=== PATIENT | female | born 1950 | race Caucasian/White ===

== ENCOUNTER → 2020-06-06 14:29 | Outpatient (CLI) | payer MEDICARE, SELFPAY ==
--- NOTE | ~2020-06-06 | MM_ITS ---
EXAMINATION: MM screening [facility] BI w juan HISTORY: Screening TECHNIQUE: Craniocaudal and mediolateral oblique 3-D tomosynthesis images were obtained and synthetic 2-D images were generated. CAD analysis was submitted and interpreted. COMPARISON: Comparison to multiple prior studies sequentially, with oldest reviewed study dated 12/04. BREAST PARENCHYMAL COMPOSITION: There are scattered areas of fibroglandular density. FINDINGS: There is no evidence of suspicious mass, calcification, or architectural distortion to sugg est malignancy in either breast. There has been no suspicious interval change. IMPRESSION: 1. No mammographic evidence of malignancy. 2. Recommend routine screening mammography in one year. BI-RADS Category 1: Negative Reviewed, dictated and finalized at location A.
== END ==
PROVIDERS: Visit Provider Obstetrics & Gynecology
DX: Z12.31 Encounter for screening mammogram for malignant neoplasm of breast (principal)
CPT/HCPCS: 77063; 77067

== ENCOUNTER 2020-08-16 08:28 | Outpatient (NON) | payer MEDICARE, SELFPAY ==
[2020-08-16 17:22] LABS: SARS-CoV-2 RNA PCR Negative
== END 2020-08-16 08:29 ==
PROVIDERS: PCP Family Medicine; Visit Provider Nurse Practitioner Family
DX: R09.89 Other specified symptoms and signs involving the circulatory and respiratory systems (principal); Z20.828 Contact with and (suspected) exposure to other viral communicable diseases
CPT/HCPCS: 87635; C9803; U0003

== ENCOUNTER 2021-06-06 01:31 | Day surgery (SDC) | payer MEDICARE, SELFPAY ==
[2021-05-28 13:10] VITALS: BMI 27.3
[2021-06-06 07:42] VITALS: BMI 26.9
[2021-06-06 07:45] VITALS: BP 140/74; PULSE 112; RESP 18; TEMP 35.9; O2SAT 99
[2021-06-06] MEDS: LACTATED RINGERS 1,000 ML 150 ML IV CONT (07:55)
--- NOTE | 2021-06-06 08:26 | WPDANESEPPF ---
Anes - Initial Pre Proc Eval Procedure: Operation Date: 06/06/21 08:45 Proposed Procedures p Screening Colonoscopy - Mike Harrell MD Date/Time: 06/06/21 08:26 Surgeon: Mike Harrell MD Pre Op Diagnosis: hx of colon polyps Patient Data Age: 71 Gender: F Height: 1.57 m Weight: 66.9 kg Last Vital Signs Temp 96.6 F L 06/06/21 07:45 Pulse 112 H 06/06/21 07:45 Resp 18 06/06/21 07:45 BP 140/74 06/06/21 07:45 Pulse Ox 99 06/06/21 07:45 Allergies Allergy/AdvReac Type Severity Reaction Status Date / Time dronedarone [From [facility]] Allergy Severe Anaphylaxis Verified 06/06/21 07:40 Penicillins Allergy Intermediate Rash Verified 06/06/21 07:40 Home Medications Medication Instructions Recorded Confirmed Type cholecalciferol (vitamin D3) 25 25 mcg PO DAILY 04/05/20 05/28/21 History mcg (1,000 unit) capsule metoprolol tartrate 25 mg tablet 12.5 mg PO BID tablet 04/05/20 05/28/21 History triamcinolone acetonide 0.5 % 1 applic TOPICAL BID PRN #15 gm 04/25/20 05/28/21 Rx topical ointment cholestyramine (with sugar) 4 gram 4 g PO DAILY #378 g 04/16/21 05/28/21 Rx oral powder vitamin B complex 1 tablet PO DAILY 04/18/21 05/28/21 History vitamin E 200 unit capsule 200 unit PO DAILY 04/18/21 05/28/21 History ascorbic acid (vitamin C) 500 mg PO DAILY 05/28/21 05/28/21 History levothyroxine 50 mcg PO DAILY 05/28/21 05/28/21 History omeprazole 40 mg PO EVERY OTHER DAY 05/28/21 05/28/21 History resveratrol 100 mg PO DAILY 05/28/21 05/28/21 History Patient hx anesthesia problems: none Family hx anesthesia problems: none PMFSH Past Medical History Medical History Acid reflux Diverticulosis Gastroesophageal reflux disease without esophagitis History of colon polyps HPV (human papilloma virus) infection Hypertension Hypothyroid IFG (impaired fasting glucose) Irritable bowel Mixed hyperlipidemia PAF (paroxysmal atrial fibrillation) Skin cancer Ulcerative colitis Surgical History Surgical History H/O LEEP History of cryosurgery History of endometrial ablation [place] teeth removed Family History Family History Father Family history of hypercholesterolemia Hypertension Family history of cardiovascular disease Mother Family history of hypercholesterolemia Family history of malignant neoplasm of breast in first degree relative Hypertension Social History Social History Smoking status: Never smoker Second hand tobacco smoke exposure: No Alcohol intake: current Drinks per week: 3 Substance use: never Substance use type: does not use Living arrangements: with family Gender identity (if verbalized by the patient): Female Spiritual care concerns: No Anes - Eval Final PreProcedure Day of Procedure 06/06/21 08:26 Patient weight: normal Heart: regular rate and rhythm Lungs: clear to auscultation Airway: Mallampati scale class II Neurological: alert and oriented Last oral intake: >/= 8 hours ASA classification: III Emergent: no Anesthetic plan: proceed Anesthesia type and monitoring: general GIVS and standard monitoring Informed Consent: The patient's anesthetic plan and its attendant risks and benefits were discussed with the patient/family/POA. Questions were solicited and answers provided to the satisfaction of the patient/family/POA.
--- NOTE | 2021-06-06 08:46 | WPDGICN ---
Assessment and Plan Assessment and plan (1) History of colon polyps: Code(s): Z86.010 - Personal history of colonic polyps Status: Acute Assessment and Plan: Patient has a prior history of colon polyps. Last colonoscopy was 2015. Plan is for surveillance colonoscopy at this time. Further recommendations will be given after endoscopy. (2) IBS (irritable bowel syndrome): Code(s): K58.9 - Irritable bowel syndrome without diarrhea Status: Acute Assessment and Plan: Patient has a history of irritable bowel syndrome. She does complain of intermittent urgency with bowel movements. Fiber supplementation is advised. We will assess this at the time of colonoscopy. GI Consult Note Consult date/time: 06/06/21 08:46 HPI: Patience Hernandez is a 71 year old female presents for screening colonoscopy. Patient has a history of colon polyps. Most recent colonoscopy was 2015. Patient states that she does have fecal urgency. In the past was attributed to irritable bowel syndrome. Symptoms have failed to improve with fiber supplementation. Family history is noncontributory. Patient denies any bleeding. She has had no change in her weight. Colonoscopy is anticipated today. Review of Systems Review of Systems: All systems reviewed & are unremarkable except as noted in HPI and below PMFSH Past Medical History Medical History Acid reflux Diverticulosis Gastroesophageal reflux disease without esophagitis History of colon polyps HPV (human papilloma virus) infection Hypertension Hypothyroid IFG (impaired fasting glucose) Irritable bowel Mixed hyperlipidemia PAF (paroxysmal atrial fibrillation) Skin cancer Ulcerative colitis Surgical History Surgical History H/O LEEP History of cryosurgery History of endometrial ablation [place] teeth removed Family History Family History Father Family history of hypercholesterolemia Hypertension Family history of cardiovascular disease Mother Family history of hypercholesterolemia Family history of malignant neoplasm of breast in first degree relative Hypertension Social History Social History Smoking status: Never smoker Second hand tobacco smoke exposure: No Alcohol intake: current Drinks per week: 3 Substance use: never Substance use type: does not use Living arrangements: with family Gender identity (if verbalized by the patient): Female Spiritual care concerns: No Meds Home Medications and Allergies Home Medications Medication Instructions Recorded Confirmed Type cholecalciferol (vitamin D3) 25 25 mcg PO DAILY 04/05/20 05/28/21 History mcg (1,000 unit) capsule metoprolol tartrate 25 mg tablet 12.5 mg PO BID tablet 04/05/20 05/28/21 History triamcinolone acetonide 0.5 % 1 applic TOPICAL BID PRN #15 gm 04/25/20 05/28/21 Rx topical ointment cholestyramine (with sugar) 4 gram 4 g PO DAILY #378 g 04/16/21 05/28/21 Rx oral powder vitamin B complex 1 tablet PO DAILY 04/18/21 05/28/21 History vitamin E 200 unit capsule 200 unit PO DAILY 04/18/21 05/28/21 History ascorbic acid (vitamin C) 500 mg PO DAILY 05/28/21 05/28/21 History levothyroxine 50 mcg PO DAILY 05/28/21 05/28/21 History omeprazole 40 mg PO EVERY OTHER DAY 05/28/21 05/28/21 History resveratrol 100 mg PO DAILY 05/28/21 05/28/21 History Allergies Allergy/AdvReac Type Severity Reaction Status Date / Time dronedarone [From [facility]] Allergy Severe Anaphylaxis Verified 06/06/21 07:40 Penicillins Allergy Intermediate Rash Verified 06/06/21 07:40 Vital Signs Vital Signs - 24 hr 06/06/21 07:45 Temperature 96.6 F L Pulse Rate 112 H Respiratory Rate 18 Blood Pressure 140/74 Pulse Oximetry 99 Exam Narrative: Phys
[2021-06-06 09:19] VITALS: BP 112/68; PULSE 68; RESP 12; O2SAT 99
[2021-06-06 09:29] VITALS: BP 115/74; PULSE 65; RESP 22; O2SAT 100
[2021-06-06 09:39] VITALS: BP 119/63; PULSE 61; RESP 14; O2SAT 100
== END 2021-06-06 09:45 | disposition home or self-care (01) ==
PROVIDERS: PCP Family Medicine; Visit Provider Internal Medicine Gastroenterology
PROC: 0DJD8ZZ Inspection of Lower Intestinal Tract, Via Natural or Artificial Opening Endoscopic (ICD-10-PCS; CPT 45378; principal; 2021-06-06 08:45)
DX: Z12.11 Encounter for screening for malignant neoplasm of colon (principal); D12.2 Benign neoplasm of ascending colon; K58.9 Irritable bowel syndrome, unspecified; I48.0 Paroxysmal atrial fibrillation; I10 Essential (primary) hypertension; E78.2 Mixed hyperlipidemia; E03.9 Hypothyroidism, unspecified; K21.9 Gastro-esophageal reflux disease without esophagitis; K57.30 Diverticulosis of large intestine without perforation or abscess without bleeding; K64.8 Other hemorrhoids
CPT/HCPCS: 45385; 88305; J2704; J7120

== ENCOUNTER → 2021-07-01 15:43 | Outpatient (CLI) | payer MEDICARE, SELFPAY ==
--- NOTE | ~2021-07-01 | MM_ITS ---
EXAMINATION: MM screening [facility] BI w juan HISTORY: Screening mammogram TECHNIQUE: Craniocaudal and mediolateral oblique 3-D tomosynthesis images were obtained and synthetic 2-D images were generated. CAD analysis was submitted and interpreted. COMPARISON: 06/06/2020 [facility] bilateral digital screening mammogram 02/14/2015 [facility] bilateral digital screening mammogram BREAST PARENCHYMAL COMPOSITION: There are scattered areas of fibroglandular density. FINDINGS: There is no evidence of suspicious mass, calcification, or architectural distortion to sugg est malignancy in either breast. There has been no suspicious interval change. IMPRESSION: 1. No mammographic evidence of malignancy. 2. Recommend routine screening mammography in one year. BI-RADS Category 1: Negative Reviewed, dictated and finalized at location A.
== END ==
PROVIDERS: Visit Provider Obstetrics & Gynecology
DX: Z12.31 Encounter for screening mammogram for malignant neoplasm of breast (principal)
CPT/HCPCS: 77063; 77067

== ENCOUNTER → 2021-10-31 02:02 | Outpatient (CLI) | payer MEDICARE, SELFPAY ==
[2021-10-31 14:22] LABS: Influenza A QL RT-PCR Negative (Negative); Influenza B QL RT-PCR Negative (Negative)
[2021-10-31 21:12] LABS: SARS-CoV-2 RNA PCR Negative
== END ==
PROVIDERS: PCP Family Medicine; Visit Provider Physician Assistant
DX: R51.9 Headache, unspecified (principal); R53.83 Other fatigue; R68.89 Other general symptoms and signs; R05.9 Cough, unspecified; Z20.822 Contact with and (suspected) exposure to COVID-19
CPT/HCPCS: 87502; C9803; U0003; U0005

== ENCOUNTER → 2022-03-28 10:39 | Outpatient (CLI) | payer MEDICARE, SELFPAY ==
--- NOTE | ~2022-03-28 | XR_ITS ---
EXAM: XR abdomen/kub 1V DATE: 03/28/2022 11:08 HISTORY: Epigastric pain . COMPARISON: 11/05/2004. FINDINGS: Clear lung bases. Normal bowel gas pattern. No organomegaly. Pelvic phleboliths. Osteopeni a and mild degenerative change in the lumbar spine, bilateral hips, and pubic symphysis. Soft tissues normal for age. IMPRESSION: No radiographic evidence of obstruction or ileus. Reviewed, dictated and finalized at location K.
== END ==
PROVIDERS: PCP Family Medicine; Visit Provider Nurse Practitioner Family
DX: R10.13 Epigastric pain (principal)
CPT/HCPCS: 74018

== ENCOUNTER → 2022-09-03 13:29 | Outpatient (CLI) | payer MEDICARE, SELFPAY ==
--- NOTE | ~2022-09-03 | MM_ITS ---
EXAMINATION: MM screening [facility] BI w juan HISTORY: Screening mammogram TECHNIQUE: Craniocaudal and mediolateral oblique 3-D tomosynthesis images were obtained and synthetic 2-D images were generated. CAD analysis was submitted and interpreted. COMPARISON: 07/01/2021, 06/06/2020 bilateral screening mammogram examinations BREAST PARENCHYMAL COMPOSITION: There are scattered areas of fibroglandular density. FINDINGS: There is no evidence of suspicious mass, calcification, or architectural distortion to sugg est malignancy in either breast. There has been no suspicious interval change. IMPRESSION: 1. No mammographic evidence of malignancy. 2. Recommend routine screening mammography in one year. BI-RADS Category 1: Negative Reviewed, dictated and finalized at location A. ER TENDER
== END ==
PROVIDERS: PCP Family Medicine; Visit Provider Obstetrics & Gynecology
DX: Z12.31 Encounter for screening mammogram for malignant neoplasm of breast (principal)
CPT/HCPCS: 77063; 77067

== ENCOUNTER → 2023-09-11 11:18 | Outpatient (CLI) | payer MEDICARE, SELFPAY ==
--- NOTE | ~2023-09-11 | MM_ITS ---
EXAMINATION: MM screening [facility] BI w juan HISTORY: Screening mammogram TECHNIQUE: Craniocaudal and mediolateral oblique 3-D tomosynthesis images were obtained and synthetic 2-D images were generated. CAD analysis was submitted and interpreted. COMPARISON: 09/03/2022, 07/01/2021, 06/06/2020 bilateral screening mammogram examinations BREAST PARENCHYMAL COMPOSITION: There are scattered areas of fibroglandular density. FINDINGS: There is no evidence of suspicious mass, calcification, or architectural distortion to sugg est malignancy in either breast. There has been no suspicious interval change. IMPRESSION: 1. No mammographic evidence of malignancy. 2. Recommend routine screening mammography in one year. BI-RADS Category 1: Negative Reviewed, dictated and finalized at location A. ER SPRINKLER
== END ==
PROVIDERS: PCP Obstetrics & Gynecology; Visit Provider Obstetrics & Gynecology
DX: Z12.31 Encounter for screening mammogram for malignant neoplasm of breast (principal)
CPT/HCPCS: 77063; 77067

== ENCOUNTER 2024-09-14 10:35 | Outpatient (CLI) | payer MEDICARE, SELFPAY ==
--- NOTE | ~2024-09-14 | MM_ITS ---
EXAMINATION: MM screening [facility] BI w juan HISTORY: Screening TECHNIQUE: Craniocaudal and mediolateral oblique 3-D tomosynthesis images were obtained and synthetic 2-D images were generated. CAD analysis was submitted and interpreted. COMPARISON: Comparison to multiple prior studies sequentially, with oldest reviewed study dated 03/2015. BREAST PARENCHYMAL COMPOSITION: Not dense: There are scattered areas of fibroglandular density. FINDINGS: There is no evidence of suspicious mass, calcification, or architectural distortion to sugg est malignancy in either breast. There has been no suspicious interval change. IMPRESSION: 1. No mammographic evidence of malignancy. 2. Recommend routine screening mammography in one year. BI-RADS Category 1: Negative Reviewed, dictated and finalized at location B. AD RECEIVER
== END 2024-09-14 10:36 | disposition home or self-care (01) ==
LOC: MICIMG 10:36
PROVIDERS: PCP Family Medicine; Visit Provider Nurse Practitioner Obstetrics & Gynecology
DX: Z12.31 Encounter for screening mammogram for malignant neoplasm of breast (principal)
CPT/HCPCS: 77063; 77067

== ENCOUNTER 2025-09-20 10:19 | Outpatient (CLI) | payer MEDICARE, SELFPAY ==
--- NOTE | ~2025-09-20 | MM_ITS ---
EXAMINATION: MM screening [facility] BI w juan HISTORY: Screening. TECHNIQUE: Craniocaudal and mediolateral oblique 3-D tomosynthesis images were obtained and synthetic 2-D images were generated. CAD analysis was submitted and interpreted. COMPARISON: 2023, 2022, and 2021 BREAST PARENCHYMAL COMPOSITION: Not Dense: There are scattered areas of fibroglandular FINDINGS: No suspicious masses are seen. There are no suspicious calcifications. No unexplained architectural distortion is seen. There are no skin or nipple abnormalities identified. There is no adenopathy seen on the images submitted. IMPRESSION: No mammographic evidence to suggest malignancy is seen. The patient may return to screening mammography as per ACR guidelines. BI-RADS 1 - Negative. Reviewed, dictated and finalized at location C. K MACHINE OPERATOR
== END 2025-09-20 10:20 | disposition home or self-care (01) ==
LOC: MICIMG 10:21
PROVIDERS: PCP Family Medicine; Visit Provider Obstetrics & Gynecology
DX: Z12.31 Encounter for screening mammogram for malignant neoplasm of breast (principal)
CPT/HCPCS: 77063; 77067